=== PATIENT | male | born 1945 | race Caucasian/White ===

== ENCOUNTER 2017-02-19 08:04 | Outpatient (CLI) | payer MEDICARE, OTHER ==
--- NOTE | 2017-02-19 13:34 | Ultrasound Report ---
BLADDER ULTRASOUND: 02/19/2017 CLINICAL INDICATION: BPH, nocturia, leaking. TECHNIQUE: Real-time scanning was performed with dental detail representative static images obtained. FINDINGS: Ultrasound of the bladder was performed. The bladder measures 9.8 x 8.4 x 6.1 cm, yieldin g a prevoid volume of 266 mL. Bilateral ureteral jets are visualized. No bladder wall lesion is see n. Following attempt at voiding, the bladder volume increased to 285 mL. The prostate is prominent. IMPRESSION: PATIENT UNABLE TO VOID AT A 285 ML BLADDER VOLUME. NO FOCAL BLADDER LESION IS IDENTIFIE D. JOB #: [id number] EXT JOB #:[id number]
== END 2017-02-19 08:05 | disposition home or self-care (01) ==
LOC: DI 08:04
PROVIDERS: ATTEND Family Medicine
DX: N40.1 Benign prostatic hyperplasia with lower urinary tract symptoms (principal); R35.1 Nocturia; R32 Unspecified urinary incontinence
CPT/HCPCS: 76857